=== PATIENT | male | born 1970 | race African-American/Black ===

== ENCOUNTER 2024-04-15 14:29 | Emergency (ER) | payer OTHER ==
[2024-04-15 14:41] VITALS: BP 138/68; PULSE 68; RESP 18; TEMP 98.4; BMI 30.4
[2024-04-15] MEDS ORDERED: IBUPROFEN 400 MG TABLET (FP) PO ONE (15:04)
[2024-04-15] MEDS: IBUPROFEN 400 MG TABLET (FP) PO ONE (15:11)
== END 2024-04-15 16:27 | disposition home or self-care (01) ==
LOC: JERFT 14:29
DX: S80.01XA Contusion of right knee, initial encounter (principal); V49.20XA Unspecified car occupant injured in collision with unspecified motor vehicles in nontraffic accident, initial encounter; Y92.410 Unspecified street and highway as the place of occurrence of the external cause
CPT/HCPCS: 99283-25

== ENCOUNTER 2024-05-23 18:57 | Inpatient (IN) | payer OTHER ==
[2024-05-23 19:57] LABS: BASO % 0.6 % (0-2.0); HEMATOCRIT 39.8 % (35.4-49); HEMOGLOBIN 13.9 GM/dL (11.7-16.9); MCH 31.6 pg (25.7-33.7); MCHC 34.9 g/dl (32.0-35.9); MEAN CELL VOLUME 90.3 fl (80-96); MEAN PLT VOLUME 8.1 fl (7.5-11.1); MONO % 9.8 % (3.8-10.2); NEUT % 80.6 % (42.8-82.8); PLATELET COUNT 255 10^3/uL (134-434); RDW 15.8 % (11.9-15.9); WHITE BLOOD COUNT 8.6 K/mm3 (4.0-10.0)
[2024-05-23] MEDS: SODIUM CHLORIDE 1,000 ML IV SCH (20:10)
[2024-05-23 20:19] LABS: CHLORIDE 109 mmol/L (98-107); POTASSIUM 3.7 mmol/L (3.5-5.1); SODIUM 141 mmol/L (136-145)
[2024-05-23 20:20] LABS: INR 1.04 (0.83-1.09); PROTHROMBIN TIME (PATIENT) 11.7 SEC (9.7-13.0)
[2024-05-23 20:21] LABS: ANION GAP 9 mmol/L (4-13); CO2 23 mmol/L (21-32)
[2024-05-23 20:23] LABS: ACTIVATED PTT 23.8 SECONDS (25.2-36.5); BLOOD UREA NITROGEN 30.7 mg/dL (7-18); GLUCOSE,RANDOM 125 mg/dL (74-106)
[2024-05-23 20:25] LABS: CREATININE 1.7 mg/dL (0.55-1.3); SGOT/AST 10 U/L (15-37); SGPT/ALT 16 U/L (13-61)
[2024-05-23 20:26] LABS: CHOLESTEROL 221 mg/dL (50-200); TOT PROT 6.7 g/dl (6.4-8.2)
[2024-05-23 20:27] LABS: LDL CHOLESTEROL (ONLY SJRH) 125 mg/dL (5-100)
[2024-05-23 20:28] LABS: BILIRUBIN,TOTAL 1.5 mg/dL (0.2-1)
[2024-05-23 20:29] LABS: ALK PHOS 84 U/L (45-117); HDL CHOLESTEROL 70 mg/dL (40-60)
[2024-05-23 21:17] LABS: PH,URINE 5.5 (5.0-8.0); URINE APPEARANCE CLEAR; URINE BILIRUBIN NEGATIVE (NEGATIVE); URINE COLOR YELLOW; URINE GLUCOSE (UA) NEGATIVE (NEGATIVE); URINE KETONE TRACE (NEGATIVE); URINE LEUK ESTERASE NEGATIVE (NEGATIVE); URINE NITRITE NEGATIVE (NEGATIVE); URINE PROTEIN NEGATIVE (NEGATIVE)
[2024-05-24] MEDS: DEXAMETHASONE SOD PHOSPHATE 10 MG/1 ML VIAL IVPUSH ONE (01:35)
[2024-05-24 08:24] LABS: HEMATOCRIT 39.4 % (35.4-49); HEMOGLOBIN 13.6 GM/dL (11.7-16.9); MCH 31.3 pg (25.7-33.7); MCHC 34.6 g/dl (32.0-35.9); MEAN CELL VOLUME 90.4 fl (80-96); MEAN PLT VOLUME 8.5 fl (7.5-11.1); PLATELET COUNT 247 10^3/uL (134-434); RBC 4.35 M/mm3 (4.00-5.60); RDW 15.9 % (11.9-15.9)
[2024-05-24 08:49] LABS: POTASSIUM 3.7 mmol/L (3.5-5.1)
[2024-05-24 09:01] LABS: CREATININE 1.1 mg/dL (0.55-1.3)
[2024-05-24 09:03] LABS: ALBUMIN 3.9 g/dl (3.4-5.0)
[2024-05-24 09:04] LABS: MAGNESIUM 1.9 mg/dL (1.8-2.4)
[2024-05-24 09:05] LABS: CALCIUM 8.6 mg/dL (8.5-10.1)
[2024-05-24 09:06] LABS: BLOOD UREA NITROGEN 26.2 mg/dL (7-18)
[2024-05-24 09:12] LABS: BILIRUBIN,TOTAL 1.8 mg/dL (0.2-1); TOT PROT 6.9 g/dl (6.4-8.2)
[2024-05-24] MEDS: PANTOPRAZOLE 40 MG TABLET PO SCH (09:42)
[2024-05-24] MEDS ORDERED: DEXAMETHASONE 4 MG TABLET (FP) PO ONE (10:00)
[2024-05-24 13:21] VITALS: BMI 28.1
[2024-05-24] MEDS ORDERED: ALECTINIB HCL PO SCH (15:58)
[2024-05-24] MEDS: ALECTINIB HCL 150 MG PO SCH (16:07)
[2024-05-24] MEDS: levETIRAcetam 500 MG/5 ML INJECTION VIAL IVPB ONE ×4 (16:33→17:36)
[2024-05-24] MEDS: DEXAMETHASONE SOD PHOSPHATE 10 MG/1 ML VIAL IVPUSH SCH (18:31)
[2024-05-24] MEDS ORDERED: ATORVASTATIN CA 40 MG TABLET (FP) PO SCH (22:00)
[2024-05-24] MEDS ORDERED: levETIRAcetam 500 MG/5 ML INJECTION VIAL IVPB SCH ×2 (22:00)
[2024-05-24] MEDS: levETIRAcetam 500 MG TABLET (FP) PO SCH (22:22)
[2024-05-25 14:40] VITALS: RESP 20
[2024-05-25 22:38] VITALS: BP 154/84; PULSE 76; TEMP 98.2
== END 2024-05-25 23:07 | disposition short-term general hospital (02) | DRG 55 ==
LOC: JER 18:57 → JERBED 21:36 → J4W 05-24 01:04
PROVIDERS: ADMIT Internal Medicine; ATTEND Internal Medicine
DX: C79.31 Secondary malignant neoplasm of brain (principal); C34.90 Malignant neoplasm of unspecified part of unspecified bronchus or lung; N17.9 Acute kidney failure, unspecified; E78.5 Hyperlipidemia, unspecified
CPT/HCPCS: 0241U-QW; 36415; 70450-TC; 70552-TC; 76775-TC; 80053; 80061; 81003; 82550; 82553; 82962; 83036; 83735; 84484; 85025; 85027; 85610; 85730; 86850; 86900; 86901; 93005; 93010; 99285-25; J1100

== ENCOUNTER 2024-07-28 12:50 | Inpatient (IN) | payer OTHER ==
[2024-07-28 15:30] LABS: BASO % 0.4 % (0-2.0); EOS % 3.3 % (0-4.5); HEMATOCRIT 39.1 % (35.4-49); HEMOGLOBIN 13.4 GM/dL (11.7-16.9); LYMPH % 35.9 % (8-40); MCH 31.9 pg (25.7-33.7); MCHC 34.3 g/dl (32.0-35.9); MEAN CELL VOLUME 93.1 fl (80-96); MEAN PLT VOLUME 7.4 fl (7.5-11.1); MONO % 10.2 % (3.8-10.2); NEUT % 50.2 % (42.8-82.8); PLATELET COUNT 149 10^3/uL (134-434); RDW 17.1 % (11.9-15.9); WHITE BLOOD COUNT 4.7 K/mm3 (4.0-10.0)
[2024-07-28 15:31] LABS: URINE APPEARANCE CLEAR; URINE BILIRUBIN NEGATIVE (NEGATIVE); URINE COLOR YELLOW; URINE GLUCOSE (UA) NEGATIVE (NEGATIVE); URINE KETONE NEGATIVE (NEGATIVE); URINE LEUK ESTERASE NEGATIVE (NEGATIVE); URINE NITRITE NEGATIVE (NEGATIVE); URINE PROTEIN NEGATIVE (NEGATIVE)
[2024-07-28 15:36] LABS: INR 1.13 (0.83-1.09)
[2024-07-28 15:55] LABS: POTASSIUM 3.7 mmol/L (3.5-5.1)
[2024-07-28 15:57] LABS: CALCIUM 9.2 mg/dL (8.5-10.1)
[2024-07-28 15:58] LABS: ALBUMIN 3.4 g/dl (3.4-5.0); BLOOD UREA NITROGEN 4.9 mg/dL (7-18); MAGNESIUM 2.4 mg/dL (1.8-2.4)
[2024-07-28 16:01] LABS: CREATININE 0.8 mg/dL (0.55-1.3)
[2024-07-28 16:02] LABS: BILIRUBIN,TOTAL 0.9 mg/dL (0.2-1); TOT PROT 6.5 g/dl (6.4-8.2)
[2024-07-28] MEDS ORDERED: DEXAMETHASONE SOD PHOSPHATE 10 MG/1 ML VIAL ONE (17:42)
[2024-07-28] MEDS: DEXAMETHASONE SOD PHOSPHATE 10 MG/1 ML VIAL IVPUSH ONE (17:47)
[2024-07-28] MEDS: levETIRAcetam 500 MG TABLET (FP) PO ONE (23:58)
[2024-07-29] MEDS: DEXAMETHASONE SOD PHOSPHATE 10 MG/1 ML VIAL IVPUSH SCH (01:10)
[2024-07-29] MEDS: PANTOPRAZOLE 40 MG TABLET PO SCH (06:06)
[2024-07-29] MEDS: ENOXAPARIN NA (PORCINE) 40 MG/0.4 ML DISP.SYRIN SQ SCH (09:43)
[2024-07-29] MEDS ORDERED: PATIENT'S OWN MEDICATION (NON-FORMULARY) (Levetiracetam [Levetiracetam] 750 MG Tablet) PO SCH (10:00)
[2024-07-29 10:32] LABS: BASO % 0.2 % (0-2.0); EOS % 0.1 % (0-4.5); HEMATOCRIT 39.4 % (35.4-49); HEMOGLOBIN 13.7 GM/dL (11.7-16.9); LYMPH % 23.2 % (8-40); MCH 31.9 pg (25.7-33.7); MCHC 34.7 g/dl (32.0-35.9); MEAN PLT VOLUME 7.5 fl (7.5-11.1); MONO % 2.8 % (3.8-10.2); NEUT % 73.7 % (42.8-82.8); PLATELET COUNT 168 10^3/uL (134-434); RBC 4.29 M/mm3 (4.00-5.60)
[2024-07-29 10:43] LABS: POTASSIUM 3.7 mmol/L (3.5-5.1)
[2024-07-29 10:50] LABS: CALCIUM 9.6 mg/dL (8.5-10.1)
[2024-07-29 10:51] LABS: ALBUMIN 3.3 g/dl (3.4-5.0); BLOOD UREA NITROGEN 10.7 mg/dL (7-18); MAGNESIUM 2.4 mg/dL (1.8-2.4)
[2024-07-29 10:54] LABS: CREATININE 0.7 mg/dL (0.55-1.3); PHOSPHOROUS 4.6 mg/dL (2.5-4.9)
[2024-07-29 10:55] LABS: BILIRUBIN,TOTAL 1.1 mg/dL (0.2-1); TOT PROT 6.6 g/dl (6.4-8.2)
[2024-07-30 14:47] VITALS: BMI 22.1
[2024-07-31 10:40] LABS: BASO % 0.2 % (0-2.0); HEMATOCRIT 38.3 % (35.4-49); HEMOGLOBIN 13.2 GM/dL (11.7-16.9); LYMPH % 11.4 % (8-40); MCH 32.1 pg (25.7-33.7); MCHC 34.6 g/dl (32.0-35.9); MEAN CELL VOLUME 92.8 fl (80-96); MEAN PLT VOLUME 7.6 fl (7.5-11.1); MONO % 5.9 % (3.8-10.2); NEUT % 82.5 % (42.8-82.8); PLATELET COUNT 204 10^3/uL (134-434); RBC 4.13 M/mm3 (4.00-5.60); RDW 16.5 % (11.9-15.9); WHITE BLOOD COUNT 6.2 K/mm3 (4.0-10.0)
[2024-07-31 11:01] LABS: CALCIUM 9.3 mg/dL (8.5-10.1)
[2024-07-31 11:02] LABS: ALBUMIN 3.2 g/dl (3.4-5.0); BLOOD UREA NITROGEN 20.6 mg/dL (7-18)
[2024-07-31 11:05] LABS: CREATININE 0.9 mg/dL (0.55-1.3)
[2024-07-31 11:06] LABS: BILIRUBIN,TOTAL 0.8 mg/dL (0.2-1); TOT PROT 6.3 g/dl (6.4-8.2)
[2024-08-01 10:36] LABS: BASO % 0.3 % (0-2.0); HEMOGLOBIN 14.6 GM/dL (11.7-16.9); LYMPH % 9.3 % (8-40); MCH 31.7 pg (25.7-33.7); MEAN CELL VOLUME 93.1 fl (80-96); MEAN PLT VOLUME 7.7 fl (7.5-11.1); MONO % 4.1 % (3.8-10.2); NEUT % 86.3 % (42.8-82.8); PLATELET COUNT 226 10^3/uL (134-434); RBC 4.62 M/mm3 (4.00-5.60); WHITE BLOOD COUNT 8.6 K/mm3 (4.0-10.0)
[2024-08-01 11:09] LABS: ALBUMIN 3.5 g/dl (3.4-5.0); BLOOD UREA NITROGEN 19.2 mg/dL (7-18); CALCIUM 9.5 mg/dL (8.5-10.1); POTASSIUM 3.7 mmol/L (3.5-5.1)
[2024-08-01 11:10] LABS: BILIRUBIN,TOTAL 0.5 mg/dL (0.2-1)
[2024-08-05] MEDS: predniSONE 20 MG TABLET (UD) PO SCH (09:58)
[2024-08-07] MEDS: DOCUSATE SODIUM 100 MG CAPSULE (FP) PO SCH (17:49)
[2024-08-08 22:10] VITALS: RESP 18
[2024-08-09] MEDS: predniSONE 20 MG TABLET (UD) PO SCH (09:15)
[2024-08-09] MEDS: POLYETHYLENE GLYCOL (HEALTHYLAX) 3350 17 GM PACKET PO PRN (22:31)
[2024-08-10 22:11] VITALS: BP 139/82; PULSE 86; TEMP 97.7
== END 2024-08-11 00:55 | DRG 54 ==
LOC: JER 12:50 → JERBED 21:13 → J5S 23:27 → J7W 08-08 15:58
PROVIDERS: ATTEND Internal Medicine
DX: C79.31 Secondary malignant neoplasm of brain (principal); G93.6 Cerebral edema; C34.90 Malignant neoplasm of unspecified part of unspecified bronchus or lung; G81.94 Hemiplegia, unspecified affecting left nondominant side; E78.5 Hyperlipidemia, unspecified; E04.1 Nontoxic single thyroid nodule; M25.562 Pain in left knee; M25.561 Pain in right knee; R53.1 Weakness; G40.909 Epilepsy, unspecified, not intractable, without status epilepticus; G89.3 Neoplasm related pain (acute) (chronic); R13.19 Other dysphagia; Z86.711 Personal history of pulmonary embolism
CPT/HCPCS: 36415; 70450-TC; 70553-TC; 71045-TC-FY; 71260-TC; 72142-TC; 72147-TC; 72149-TC; 72156-TC; 72157-TC; 72158-TC; 74177-TC; 80053; 81003; 83735; 84100; 84484; 85025; 85610; 85730; 86850; 86900; 86901; 87086; 93005; 93010; 97116-GP; 97162-GP; 99285-25; J1100; Q9967